=== PATIENT | female | born 1985 | race African-American/Black ===

== ENCOUNTER 2017-01-20 08:23 | Emergency (ER) | payer SELFPAY ==
[~2017-01-20] VITALS: Ht 167.6 cm; Wt 69.0 kg
[2017-01-20] MEDS ORDERED: IBUPROFEN 800MG TABLET PO ONE (09:30)
[2017-01-20 12:13] VITALS: BP 109/62
== END 2017-01-20 12:14 | disposition home or self-care (01) ==
LOC: ER 09:18
DX: M54.6 Pain in thoracic spine (principal); F17.200 Nicotine dependence, unspecified, uncomplicated
CPT/HCPCS: 72100; 81025; 99284